=== PATIENT | male | born 2000 | race Caucasian/White ===

== ENCOUNTER → 2021-02-06 09:27 | Outpatient (BNVA) | payer OTHER, SELFPAY | PROVIDERS: Visit Provider Registered Nurse | DX: Z02.1 Encounter for pre-employment examination (principal) | CPT/HCPCS: 80307 ==

== ENCOUNTER 2024-10-17 09:44 | Emergency (ER) | payer OTHER, SELFPAY ==
[2024-10-17 09:50] VITALS: BP 152/101; PULSE 86; RESP 28; TEMP 36.7; O2SAT 100; BMI 20.9
--- NOTE | 2024-10-17 10:04 | XRR_ITS ---
PROCEDURE INFORMATION: Exam: XR Left Hand Exam date and time: 10/17/2024 10:09 AM Age: 23 years old Clinical indication: Injury or trauma; Other: Cut hand with band saw; Laceration; Left TECHNIQUE: Imaging protocol: Radiologic exam of the left hand. Views: 3 or more views. COMPARISON: CR XR finger LT min 2V [id number] 11/28/2019 11:36 AM images only, no report. FINDINGS: Bones/joints: There is a fracture involving both bones at the proximal interphalangeal joint of the 2nd digit. There is a fracture of the middle and proximal phalanx of the 3rd digit with displacement of fragments of the middle phalanx spread over 35 mm. There are fractures of the proximal middle phalanx of the 4th digit, very comminuted. There is no fracture noted of the 1st or 5th digit. Slight deformity seen to the tuft of the 1st digit presumably due to healing of the prior amputation of the tuft. Soft tissues: Extensive soft tissue injury is seen of the 3rd and 4th digits less severe involving the 2nd digit. XR/XR hand LT min 3V* [id number] IMPRESSION: Extensive soft tissue injury with extensive fractures of the 3rd and 4th digits. Less severe soft tissue injury and fractures of the middle and proximal phalanx of the 2nd digit.
[2024-10-17 10:14] VITALS: RESP 25
[2024-10-17] MEDS: ondansetron 2 mg/ML SDV 2 mL 4 MG IM (10:14)
[2024-10-17] MEDS: morphine 4 mg/mL SDV 1 mL IM (10:14)
[2024-10-17] MEDS: ketamine 100 mg/mL Inj 5 mL 200 MG IVP (10:15)
--- NOTE | 2024-10-17 10:20 | PC.NURSE ---
EMERGENT CONSCIOUS SEDATION DONE WITH THIS NURSE AND DR. JESSICA AT BEDSIDE. 200MG OF KETAMINE GIVEN. PT PLACED ON 5L OXYGEN AFTER MEDICATION ADMINISTRATION. NASOPHARYNGEAL AIRWAY INSERTED BY DR. JESSICA. PT MONITORED BY DR. JESSICA AND THIS NURSE UNTIL PT BEGAN TO ARROUSE.
[2024-10-17 10:33] LABS: Basophils # 0.1 10^3/uL (0.0-0.1); Basophils % 0.5 %; Eosinophils # 0.1 10^3/uL (0.0-0.8); Eosinophils % 1.3 %; Hematocrit 44.2 % (37-53); Lymphocytes # 3.1 10^3/uL (0.8-4.8); Lymphocytes % 28.8 %; Mean Corpuscular HGB Conc 34.6 g/dL (30-55); Mean Corpuscular Hemoglobin 30.2 pg (27-33); Mean Corpuscular Volume 87.4 fl (82-101); Mean Platelet Volume 10.8 fL (7.4-10.4); Monocytes # 0.5 10^3/uL (0.2-0.9); Monocytes % 4.7 %; Neutrophils # 6.81 10^3/uL (1.8-7.7); Neutrophils % 64.4 %; Nucleated Red Blood Cells % 0 %; Platelet Count 269 10^3/cmm (157-399); Red Blood Count 5.06 10^6/uL (3.85-5.65); Red Cell Distribution Width 11.7 % (12.1-15.1); White Blood Count 10.58 10^3/uL (3.29-11.43)
[2024-10-17] MEDS: sodium chloride 0.9% 1,000 ML 999 ML IV (10:33)
[2024-10-17] MEDS: ceFAZolin 1,000 mg SDV 1000 MG IVP (10:34)
[2024-10-17] MEDS: HYDROmorphone 0.5 MG/0.5 ML INJ 1 MG IVP ×2 (10:35→11:12)
[2024-10-17 10:47] LABS: Partial Thromboplastin Time 24.9 SECONDS (23.9-36.7)
[2024-10-17 10:51] LABS: Alanine Aminotransferase 12 U/L (0-41); Albumin Level 4.8 g/dL (3.5-5.2); Alkaline Phosphatase 54 U/L (40-130); Anion Gap 19.6 (5-19); Aspartate Amino Transferase 21 U/L (0-40); Blood Urea Nitrogen 8 mg/dL (6-20); Calcium 9.5 mg/dL (8.5-10.5); Carbon Dioxide 22 mmol/L (22-29); Chloride 97 mmol/L (98-107); Creatinine Clr Calc Pharmacy 131.8315; Globulin 2.4 g/dL (1.3-4.6); Glomerular Filtration Rate 105.5 mL/min (90-130); Glucose 103 mg/dL (65-115); Osmolality Calculated 279 mOsm/kg (285-295); Potassium 3.6 mmol/L (3.5-5.1); Sodium 135 mmol/L (136-145); Total Bilirubin 0.4 mg/dL (0.15-1.2); Total Protein 7.2 g/dL (6.6-8.7)
[2024-10-17 11:00] VITALS: BP 164/112; PULSE 126; O2SAT 100
[2024-10-17] MEDS: LORazepam 2 mg/mL INJ 1 mL IVP ×2 (11:02→11:08)
[2024-10-17] MEDS: midazolam 1 mg/mL INJ 2 mL 2 MG IVP (11:15)
[2024-10-17] MEDS: midazolam hcl 100 MG/100 ML BAG IV (11:18)
--- NOTE | 2024-10-17 11:22 | W.ED.EXTPRO ---
HPI - Extremity Problem General: Chief complaint: Extremity Injury, Upper Stated complaint: Left Hand Injury Time Seen by Provider: 10/17/24 10:04 History of Present Illness: 23-year-old male presents emergency room complaining of injury to his left hand. Patient is right-hand dominant. He is complaining of severe pain there is some bulky bandage in place on the left hand initially. In order to examine hand ultimately we had to do a conscious sedation emergently along with pain medications. Prior to conscious sedation patient states he is on venlafaxine he denies any other medications no significant past medical or surgical problems. Previously had a fracture 2020 of his left thumb Associated symptoms: Deny chest pain, fever(s) or rash Related Data Home Medications ?Medication ?Instructions ?Recorded ?Confirmed venlafaxine 37.5 mg 37.5 mg PO DAILY 10/17/24 10/17/24 capsule,extended release 24 hr Allergies Allergy/AdvReac Type Severity Reaction Status Date / Time No Known Allergies Allergy Verified 10/17/24 10:07 Review of Systems Const: Denies: fever(s) or chills Card: Denies: chest pain Resp: Denies: dyspnea GI: Denies: abdominal pain : Denies: dysuria, urinary frequency or urinary urgency Musc: Denies: neck pain or back pain Skin/Breast: Denies: rash PFSH ED PFSH: Social History Smoking and tobacco/nicotine status: current every day tobacco/nicotine user cigarettes Packs smoked per day: 0.25 Alcohol intake: never Substance/Drug Use: never Adopted: No Caregiver/support person: No Lives independently: No Current occupational status: employed Current occupational exposures/hazards: Yes Sexually active: Yes Do you think of yourself as: Straight/Heterosexual Current gender identity: Male Physical Exam Const: ORIENTATION/CONSCIOUSNESS: Yes awake, Yes oriented to person, Yes oriented to place and Yes oriented to time HENMT: COMMON NORMALS: normocephalic, atraumatic and hearing grossly normal bilaterally HEAD & SCALP: normocephalic and atraumatic Resp: COMMON NORMALS: normal respiratory effort, No retractions, No use of accessory muscles and clear to auscultation bilaterally AUSCULTATION: clear to auscultation bilaterally Cardio: COMMON NORMALS: regular rate, regular rhythm and No murmurs present (Cardio) RATE: regular rate RHYTHM: regular rhythm GI: COMMON NORMALS: Soft to palpation and No hepatosplenomegaly present AUSCULTATION: Yes normoactive bowel sounds PALPATION: Yes Soft to palpation, No Tenderness to palpation present (GI), No Guarding due to palpation present (GI) and Yes No hepatosplenomegaly present Extremity: OTHER: Left hand the 3rd and 4th fingers are nearly completely amputated at the proximal phalanx there is exposed bone. The third finger is completely denuded from the bone and the soft tissue is strong out there is absence of blood flow to the soft tissue distally tissue is already become dusky. The fifth finger there is superficial lacerations does not appear to be any bony involvement there is no exposure of bone. The second finger there is lacerations across finger most notably at the PIP joint medially there does appear to be joint bony involvement this was confirmed on x-ray good capillary refill on the 1st, 2nd and 5th fingers there is only very superficial abrasions to the dorsum of the first digit. Neuro: SENSORIUM/ORIENTATION: Yes oriented to person, Yes oriented to place and Yes oriented to time Skin: COMMON NORMALS: no rashes or lesions noted GENERAL SKIN EXAM: no rashes or lesions noted Procedures Procedural Sedation Indication: fracture/dislocation reduction ASA Class: I Preparation: cage clerk applied, pulse oximeter, supplemental O2 applied and suction/airway equipment at bedside Ketamine: IV Ketamine dose (mg): 200 Additional Comments: Initially patient had some transient hypoxemia which required nasopharyngeal airway to be placed as well as supplemental oxygen. This only lasted a few minutes then he resolved. Initial procedural sedation was done emergently to facilitate exam of the injury. RT arrived shortly after he began. Course Vital Signs: Vital signs: Vital Signs Temperature 98.0 F 10/17/24 09:50 Pulse Rate 85 10/17/24 12:20 Respiratory Rate 25 H 10/17/24 10:14 Blood Pressure 129/78 10/17/24 12:20 Pulse Oximetry 95 10/17/24 12:20 Oxygen Delivery Me thod Nasal Cannula 10/17/24 11:53 Oxygen Flow Rate 3 10/17/24 11:53 MDM - Extremity (Nontraumatic) Medical Decision Making Initially to facilitate exam and x-ray required conscious sedation with ketamine 200 mg this worked well he was also given pain medication however the ketamine is wearing off he had significant hallucinations and was difficult to manage even with redirection he was given Ativan and more pain medications this helped but he still had difficulty following commands due to pain. Lingering side effect from the ketamine seem to worsen that. Instead he was started on a Versed drip at 1 mg he is given loading dose of 3 mg. He tolerated this much better he was intermittently given pain medications. Discussed with hand surgery at [facility] they did not feel well equipped to manage this he was referred instead [facility] as an ER to ER transfer.discussed with ambulance crew continue the Versed drip and dose with 25 mcg of fentanyl as needed if pain needs further control. Images have been uploaded. Patient has received Ancef and tetanus. Medical Records I reviewed the patient's medical records. Lab Data I reviewed the patient's lab results. 10/17/24 10:25 10/17/24 10:25 Radiology Impressions Hand X-Ray 10/17/24 10:04 IMPRESSION: Extensive soft tissue injury with extensive fractures of the 3rd and 4th digits. Less severe soft tissue injury and fractures of the middle and proximal phalanx of the 2nd digit. Laboratory Results WBC 10.58 10^3/uL (3.29-11.43) 10/17/24 10:25 RBC 5.06 10^6/uL (3.85-5.65) 10/17/24 10:25 Hgb 15.30 g/dL (11.27-16.99) 10/17/24 10:25 Hct 44.2 % (37-53) 10/17/24 10:25 MCV 87.4 fl (82-101) 10/17/24 10:25 MCH 30.2 pg (27-33) 10/17/24 10:25 MCHC 34.6 g/dL (30-55) 10/17/24 10:25 RDW 11.7 % (12.1-15.1) L 10/17/24 10:25 Plt Count 269 10^3/cmm (157-399) 10/17/24 10:25 MPV 10.8 fL (7.4-10.4) H 10/17/24 10:25 Neut % (Auto) 64.4 % 10/17/24 10:25 Lymph % (Auto) 28.8 % 10/17/24 10:25 Wilkinson % (Auto) 4.7 % 10/17/24 10:25 Eos % (Auto) 1.3 % 10/17/24 10:25 Baso % (Auto) 0.5 % 10/17/24 10:25 Neut # (Auto) 6.81 10^3/uL (1.8-7.7) 10/17/24 10:25 Lymph # (Auto) 3.1 10^3/uL (0.8-4.8) 10/17/24 10:25 Wilkinson # (Auto) 0.5 10^3/uL (0.2-0.9) 10/17/24 10:25 Eos # (Auto) 0.1 10^3/uL (0.0-0.8) 10/17/24 10:25 Baso # (Auto) 0.1 10^3/uL (0.0-0.1) 10/17/24 10:25 Nucleated RBC % (auto) 0 % 10/17/24 10:25 Nucleated RBCs # 0.0 /100WBC 10/17/24 10:25 APTT 24.9 SECONDS (23.9-36.7) 10/17/24 10:25 Sodium 135 mmol/L (136-145) L 10/17/24 10:25 Potassium 3.6 mmol/L (3.5-5.1) 10/17/24 10:25 Chloride 97 mmol/L (98-107) L 10/17/24 10:25 Carbon Dioxide 22 mmol/L (22-29) 10/17/24 10:25 Anion Gap 19.6 (5-19) H 10/17/24 10:25 BUN 8 mg/dL (6-20) 10/17/24 10:25 Creatinine 0.9 mg/dL (0.7-1.2) 10/17/24 10:25 GFR Calculation 105.5 mL/min (90-130) 10/17/24 10:25 Glucose 103 mg/dL (65-115) 10/17/24 10:25 Calculated Osmolality 279 mOsm/kg (285-295) L 10/17/24 10:25 Calcium 9.5 mg/dL (8.5-10.5) 10/17/24 10:25 Total Bilirubin 0.4 mg/dL (0.15-1.2) 10/17/24 10:25 AST 21 U/L (0-40) 10/17/24 10:25 ALT 12 U/L (0-41) 10/17/24 10:25 Alkaline Phosphatase 54 U/L (40-130) 10/17/24 10:25 Total Protein 7.2 g/dL (6.6-8.7) 10/17/24 10:25 Albumin 4.8 g/dL (3.5-5.2) 10/17/24 10:25 Globulin 2.4 g/dL (1.3-4.6) 10/17/24 10:25 Urine Opiates Screen Positive ng/mL (Negative) H 10/17/24 12:17 Ur Barbiturates Screen Negative ng/mL (Negative) 10/17/24 12:17 Ur Phencyclidine Scrn Negative ng/mL (Negative) 10/17/24 12:17 Ur Amphetamines Screen Negative ng/mL (Negative) 10/17/24 12:17 U Benzodiazepines Scrn Negative ng/mL (Negative) 10/17/24 12:17 Urine Cocaine Screen Negative ng/mL (Negative) 10/17/24 12:17 U Marijuana (THC) Screen Negative ng/mL (Negative) 10/17/24 12:17 All radiology interpretation(s) finalized by discharge Critical Care Time Critical Care Time: Critical Care Time: Yes Total Critical Care Time: 35 Attestation: The high probability of a clinically significant, sudden or life threatening deterioration of the patient's musculoskeletal (traumatic amputation of multiple fingers) system(s) required my full and direct attention, intervention and personal management. The critical care time is as shown. 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
[2024-10-17 11:53] VITALS: BP 128/81; PULSE 78; O2SAT 99
[2024-10-17] MEDS: tetanus-dipt-pertussis 0.5 mL SDV IM (12:06)
[2024-10-17 12:20] VITALS: BP 129/78; PULSE 85; O2SAT 95
--- NOTE | 2024-10-17 12:23 | PC.NURSE ---
100MG/100ML BAG OF VERSED SENT WITH EMS CREW.
[2024-10-17 12:35] LABS: Amphetamines Screen Urine Negative (Negative); Barbiturates Screen Urine Negative (Negative); Benzodiazepines Screen Urine Negative (Negative); Cocaine Screen Urine Negative (Negative); Opiate Screen Urine Positive (Negative); PCP Screen Urine Negative (Negative); THC Screen Urine Negative (Negative)
--- NOTE | 2024-10-17 20:54 | PC.NURSE ---
100MG/100ML BAG OF VERSED WAS RETURNED BY EMS @2052.
--- NOTE | 2024-10-18 06:21 | PC.NURSE ---
the Midazolam 100mg/100ml that ems returned was returned to pharmacy at this time
--- NOTE | 2024-10-18 09:01 | PC.NURSE ---
100MG/100ML VERSED BAG THAT WAS SENT WITH EMS ON 10/17 FOR TRANSFER RETURNED UNOPENED TO ER STAFF AND PHARMACY STAFF. UNOPENED BAG TAKEN TO BACK TO PHARMACY.
== END 2024-10-17 12:23 | disposition short-term general hospital (02) ==
PROVIDERS: Emergency Provider Family Medicine
DX: S68.113A Complete traumatic metacarpophalangeal amputation of left middle finger, initial encounter (principal); S68.115A Complete traumatic metacarpophalangeal amputation of left ring finger, initial encounter; X58.XXXA Exposure to other specified factors, initial encounter; Z23 Encounter for immunization
CPT/HCPCS: 73130; 80053; 80306; 85025; 85730; 90471; 90715; 96374; 96375; 96376; 99152; 99291; J0690; J1171; J2060; J2250; J2270; J2405; J3490; J7030

== ENCOUNTER 2024-12-01 13:55 | Outpatient (RCR) | payer OTHER, SELFPAY | END 2024-12-19 23:59 | disposition home or self-care (01) | LOC: SOT 13:55 | PROVIDERS: Visit Provider Orthopaedic Surgery | DX: S68.119A Complete traumatic metacarpophalangeal amputation of unspecified finger, initial encounter (principal); X58.XXXA Exposure to other specified factors, initial encounter | CPT/HCPCS: 97022; 97110; 97140; 97165; 97530 ==

== ENCOUNTER 2024-12-20 05:00 | Outpatient (RCR) | payer OTHER, SELFPAY | END 2025-01-19 23:59 | disposition home or self-care (01) | LOC: SOT 05:00 | PROVIDERS: Visit Provider Orthopaedic Surgery | DX: S68.119A Complete traumatic metacarpophalangeal amputation of unspecified finger, initial encounter (principal); X58.XXXA Exposure to other specified factors, initial encounter | CPT/HCPCS: 97022; 97110; 97140; L3905 ==

== ENCOUNTER 2025-01-20 05:00 | Outpatient (RCR) | payer OTHER, SELFPAY | END 2025-02-19 23:59 | disposition home or self-care (01) | LOC: SOT 05:00 | PROVIDERS: Visit Provider Orthopaedic Surgery | DX: S68.111A Complete traumatic metacarpophalangeal amputation of left index finger, initial encounter (principal); S68.115A Complete traumatic metacarpophalangeal amputation of left ring finger, initial encounter | CPT/HCPCS: 97022; 97110; 97140 ==

== ENCOUNTER 2025-02-20 05:00 | Outpatient (RCR) | payer OTHER, SELFPAY | END 2025-03-21 23:59 | disposition home or self-care (01) | LOC: SOT 05:00 | PROVIDERS: Visit Provider Orthopaedic Surgery | DX: S68.012A Complete traumatic metacarpophalangeal amputation of left thumb, initial encounter (principal); X58.XXXA Exposure to other specified factors, initial encounter | CPT/HCPCS: 97022; 97110; 97140 ==